=== PATIENT | female | born 1945 | race Asian ===

== ENCOUNTER 2017-05-24 08:19 | Observation (INO) | payer OTHER ==
[~2017-05-24] VITALS: Ht 157.5 cm; Wt 66.0 kg
[2017-05-24] VITALS (30 sets, daily range): BP systolic 122–176; BP diastolic 57–84; PULSE 64–88; RESP 11–20; Ht 157.5 cm; Wt 66.0 kg
[~2017-05-24 08:19] MED LIST: LIDOCAINE 2% (SDV) 5 ML INJ ONE; ONDANSETRON 4 MG INJ ONE
[2017-05-24] MEDS ORDERED: SOD CHLORIDE 0.9% 1,000 ML IV ONE (08:30)
[2017-05-24] MEDS ORDERED: CEFAZOLIN 2 GM/50 ML (PMX) 50 ML IVPB ONE (08:30)
[2017-05-24] MEDS ORDERED: OMEG1CAP2 PO (08:57)
[2017-05-24] MEDS ORDERED: LISI20TA11 PO (08:57)
[2017-05-24] MEDS ORDERED: IBUP-1542 PO (08:58)
[2017-05-24] MEDS ORDERED: AMLO2.5T78 PO (08:58)
[2017-05-24] MEDS ORDERED: ASPI-664 PO (08:59)
[2017-05-24] MEDS ORDERED: MIDAZOLAM 1 MG/ML 2 ML INJ ONE (10:40)
[2017-05-24] MEDS ORDERED: FENTAnyl 50 MCG/ML VIAL ONE ×2 (10:47→11:33)
[2017-05-24] MEDS ORDERED: PROPOFOL 100 ML ONE (10:57)
[2017-05-24] MEDS ORDERED: CEFAZOLIN 1 GM INJ ONE (10:57)
[2017-05-24] MEDS ORDERED: DEXAMETHASONE 4 MG/ML 1 ML INJ ONE (11:06)
[2017-05-24] MEDS ORDERED: ONDANSETRON 4 MG INJ IV PRN ×2 (12:00)
[2017-05-24] MEDS ORDERED: hydrALAzine 20 MG INJ IV PRN ×2 (12:00→13:00)
[2017-05-24] MEDS ORDERED: MEPERIDINE 25 MG INJ IV PRN (12:00)
[2017-05-24] MEDS ORDERED: ACETAMINOPHEN 1000MG/100ML IV 100 ML IVPB PRN (12:00)
[2017-05-24] MEDS ORDERED: KETOROLAC 30 MG INJ IV PRN (12:00)
[2017-05-24] MEDS ORDERED: FENTAnyl 50 MCG/ML VIAL IV PRN ×3 (12:00)
[2017-05-24] MEDS ORDERED: EPHEDrine SULFATE 50 MG/5 ML SYG IV PRN (12:00)
[2017-05-24] MEDS ORDERED: DIPHENHYDRAMINE 50 MG INJ IV PRN (12:00)
[2017-05-24] MEDS ORDERED: OXYCODONE/ACETAMINOPHEN (5/325) TAB PO PRN ×2 (12:00)
[2017-05-24] MEDS ORDERED: LABETALOL HCL 20MG INJ IV PRN (12:00)
[2017-05-24] MEDS ORDERED: morphine (1 MG/ML) 10ML SYRINGE IV PRN ×3 (12:00)
[2017-05-24] MEDS: D5W-0.45 NACL + KCL 20 MEQ 1,000 ML IV SCH ×3 (13:59→22:24)
--- NOTE | 2017-05-24 14:24 | HP ---
DATE OF ADMISSION: 05/24/2017 HISTORY OF PRESENT ILLNESS: The patient is a 71-year-old female with history of hypertension and right breast cancer. The patient is status post-right partial mastectomy. The patient was evaluated by Dr. Hernandez in surgical consultation. Patient was brought to the hospital and underwent right modified radical mastectomy. Postoperatively, the patient experienced moderate pain and patient will be admitted for further evaluation and management. The patient is evaluated in the Recovery room. Patient is lethargic but arousable, she cannot provide any detailed medical history. Most of the history was obtained from medical records and talking to patient's daughter, Bindu. PAST MEDICAL HISTORY: Positive for hypertension, right breast cancer. PAST SURGICAL HISTORY: Status post-right partial mastectomy. FAMILY HISTORY: Positive for history of breast cancer in patient's sister. SOCIAL HISTORY: Patient lives at home with her family. Patient denies any tobacco use. Denies any alcohol use. Denies any illicit drug use. ALLERGIES: NO KNOWN ALLERGIES. MEDICATIONS: Include amlodipine, aspirin, ibuprofen, and lisinopril. REVIEW OF SYSTEMS: A 12 point review of system is negative unless mentioned in HPI. PHYSICAL EXAMINATION: GENERAL: Well-developed, well-nourished female, currently lethargic but easily arousable. Alert to name and situation. VITAL SIGNS: Temperature is 97.9, pulse is 64, blood pressure 146/72, respiratory rate 18. Oxygen saturation 97 percent on room air. HEENT: Head is atraumatic, normocephalic. Pupils equal, round, reactive to light and accommodation. Oral mucosa is pink and moist. NECK: Supple. No cervical lymphadenopathy. No thyromegaly. CHEST: Status post-right mastectomy with dry, clean, intact dressing and axillary JARVIS drain. LUNGS: Clear bilaterally. There is no rhonchi, wheezes, rales noted. CARDIAC: Normal S1, S2. No murmurs, gallops, clicks, or rubs noted. ABDOMEN: Round, soft, nondistended, nontender. Bowel sounds present. There is no guarding or rebound tenderness. EXTREMITIES: No edema, clubbing, cyanosis. Pulses equal bilaterally 2+. SKIN: No apparent rash noted . NEUROLOGIC: The patient lethargic but easily arousable, and moves all extremities. ASSESSMENT AND PLAN: 1. Right breast cancer, status post-right modified radical mastectomy. Will continue Tylenol and morphine as needed for pain. Zofran as needed for nausea. Continue IV fluids and postoperative antibiotics. 2. Hypertension. We will administer hydralazine as needed for systolic blood pressure above 170. Resume patient's home oral antihypertensives. The patient was able to take oral medications. 3. Continue sequential compression device for deep venous thrombosis prophylaxis. 4. Follow up surgical recommendation. 5. Further recommendations based on clinical course. 6. Plan of care discussed with Dr. Urena. DICTATED BY: Leslye Mariscal NP. Dictated By: Leslye Mariscal NP /jeff/more /Document#: [id number]
[2017-05-24] MEDS: morphine 2 MG INJ IV PRN (14:30)
--- NOTE | 2017-05-24 17:08 | OPR ---
DATE OF OPERATION: 05/24/2017 PREOPERATIVE DIAGNOSIS: Right breast cancer. POSTOPERATIVE DIAGNOSIS: Right breast cancer. OPERATION PERFORMED: Right modified radical mastectomy. ANESTHESIA: General. ANESTHESIOLOGIST: Juan Prince MD SURGEON: Kranthi Hernandez MD DECORATING MACHINE OPERATOR: Blas Kumar MD INDICATIONS FOR PROCEDURE: Patient is a 71-year-old female, who had a previous invasive cancer of the right breast treated in 2006 at another institution. At that time, she had a partial mastectomy, followed by radiation. She recently underwent surveillance mammography and was found to have suspicious microcalcifications in the right breast, a rather large span, and biopsy confirmed ductal carcinoma in situ. The patient was counseled as to risks versus benefits of the options, including modified radical mastectomy. She consented for a modified radical mastectomy and was scheduled for surgery. OPERATIVE PROCEDURE: Patient was brought to the operating theater, placed under general endotracheal tube anesthesia. The right breast and axillary region was prepped and draped in the usual sterile fashion. A planned elliptical incision around the nipple-areolar complex was demarcated with marking pen and carried out with a 15 blade scalpel. Subcutaneous tissue was dissected with cautery. The skin edges were then elevated with skin hooks, and skin flaps were created using cautery, first superiorly to the clavicle, then medially to the sternal border, inferiorly to the inframammary fold, and laterally until the latissimus dorsi muscle was dissected throughout its course. Mastectomy then took place from medial to lateral, using cautery at the border of the pectoralis major muscle. The pectoralis minor muscle was identified. Clavipectoral fascia was incised. There was significant scar tissue from previous axillary dissection. With blunt dissection along the chest wall, the long thoracic nerve was identified and kept out of harm's way. Axillary tissue was then resected, using a combination of cautery and the LigaSure device. Specimen was then elevated, transected, oriented and sent for permanent pathologic analysis. The wound was irrigated. Minimal bleeding was controlled with cautery. Two number 10 flat Angel-Valle drains were then brought through the right mid axillary line. One was cut to size and laid within the axilla. The other was cut to size and laid over the pectoralis major muscle. Both drains were secured in place with 2-0 nylon suture in standard fashion. The skin was then reapproximated with skin dinesh. Patient tolerated procedure well. The estimated blood loss was approximately 30 mL. There were no complications. Patient was transferred transported in stable condition to the recovery room, where a circumferential compression dressing was applied. Dictated By: Kranthi Hernandez MD /jeff/ish /Document#: [id number]
[2017-05-25] MEDS: morphine 2 MG INJ IV PRN (00:08)
[2017-05-25 02:00] VITALS: BP 113/55; RESP 20
[2017-05-25] MEDS: D5W-0.45 NACL + KCL 20 MEQ 1,000 ML IV SCH ×3 (03:47→11:47)
[2017-05-25 05:30] VITALS: BP 126/58; RESP 20
[2017-05-25 06:13] LABS: BASOPHILS % 0.1 % (0.0-2.0); HEMATOCRIT 33.3 % (37.0-47.0); HEMOGLOBIN 10.2 g/dl (12.0-16.0); LYMPHOCYTES # 1.7 10^3/ul (0.8-2.9); LYMPHOCYTES % 16.3 % (15.0-51.0); MEAN CORPUSCULAR HEMOGLOBIN 22.5 pg (29.0-33.0); MEAN CORPUSCULAR HGB CONC 30.6 g/dl (32.0-37.0); MEAN CORPUSCULAR VOLUME 73.3 fl (82.0-101.0); MEAN PLATELET VOLUME 9.1 fl (7.4-10.4); MONOCYTE # 0.5 10^3/ul (0.3-0.9); MONOCYTES % 5.1 % (0.0-11.0); NEUTROPHIL # 8.2 10^3/ul (1.6-7.5); NEUTROPHILS % 77.8 % (39.0-77.0); PLATELET COUNT 222 10^3/UL (140-415); RED BLOOD COUNT 4.54 10^6/ul (4.20-5.40); RED CELL DISTRIBUTION WIDTH 15.9 % (11.5-14.5); WHITE BLOOD COUNT 10.5 10^3/ul (4.8-10.8)
[2017-05-25 06:43] LABS: CALCIUM 8.6 mg/dl (8.4-10.2); CREATININE 0.74 mg/dl (0.44-1.00); POTASSIUM 4.6 mmol/L (3.5-5.1)
[2017-05-25 07:21] VITALS: BP 119/59; RESP 20
[2017-05-25] MEDS ORDERED: AMLODIPINE 2.5 MG TAB PO SCH (09:00)
[2017-05-25] MEDS ORDERED: LISINOPRIL 20 MG TAB PO SCH (09:00)
[2017-05-25 13:38] VITALS: BP 127/64; RESP 20
[2017-05-25] MEDS ORDERED: HYDR-906 PO (15:16)
--- NOTE | 2017-05-25 17:16 | PN ---
DATE: 05/25/2017 SUBJECTIVE: No complaint, not that much of pain. The patient is status post right modified radical mastectomy, postop day number 1. OBJECTIVE: GENERAL: Awake, alert, and oriented x3. VITAL SIGNS: Temperature 98.7, heart rate 90, blood pressure 122/64, saturation 97 percent room air. Two Angel-[place]le drains in place. Number 1 drained 30 mL. Number 2 drained 15 mL since operation. color is serosanguinous. The breast image is intact. The bandage around the chest wall is not too tight. The patient's daughter, who is a nurse, was at the bedside. She was instructed how to take care of the Angel-Valle drains, how to drain them, how to measure them. PLAN: The patient can be discharged home today to be followed by Dr. Hernandez in the office. The family will call the office and make an appointment. All the questions that was put forward by the patient's daughter were answered, and she does have any more questions. Pain medication prescription will be given. Dictated By: Blas Kumar MD /jeff/anibal /Document#: [id number] LYRIC
--- NOTE | 2017-05-25 18:16 | DS ---
Date/Time of Note Date/Time of Note DATE: 05/25/17 TIME: 18:11 Discharge Summary Admission/Discharge Info Admit Date/Time May 24, 2017 at 11:48 Discharge Date/Time May 25, 2017 at 15:50 Patient Condition: Stable Hx of Present Illness The patient is a 71-year-old female with history of hypertension and right breast cancer. The patient is status post-right partial mastectomy. The patient was evaluated by Dr. Hernandez in surgical consultation. Patient was brought to the hospital and underwent right modified radical mastectomy. Postoperatively, the patient experienced moderate pain and patient will be admitted for further evaluation and management. The patient is evaluated in the Recovery room. Patient is lethargic but arousable, she cannot provide any detailed medical history. Most of the history was obtained from medical records and talking to patient's daughter, Bindu. Hospital Course 1. Right breast cancer, status post-right modified radical mastectomy. Will continue Tylenol and morphine as needed for pain. Zofran as needed for nausea. Continue IV fluids and postoperative antibiotics. 2. Hypertension. We will administer hydralazine as needed for systolic blood pressure above 170. Resume patient's home oral antihypertensives when pt is able to take oral medications. Home Meds Active Scripts Hydrocodone/Acetaminophen ([place] 5-325 Tablet) 1 Each Tablet, 1 EACH PO Q4 for PAIN, #30 TAB Prov:ELDA REINA 05/25/17 Reported Medications Aspirin (Low Dose Aspirin) 81 Mg Tablet., 81 MG PO DAILY, #30 TAB 05/24/17 Amlodipine Besylate* (Amlodipine Besylate*) 2.5 Mg Tablet, 2.5 MG PO DAILY, #30 TAB 05/24/17 Lisinopril* (Lisinopril*) 20 Mg Tablet, 20 MG PO DAILY, #30 TAB 05/24/17 Mackay-3 Acid Ethyl Esters (Lovaza) 1 Gm Capsule, 2 GM PO BID, CAP 05/24/17 Discontinued Reported Medications Ibuprofen* (Motrin*) 600 Mg Tab, 600 MG PO QID Y for PAIN, TAB 05/24/17 Follow-up Plan Follow-up with Dr. Hernandez in 1 week Primary Care Provider Not On Staff Doctor Time spent on discharge: > 30 minutes Pending Labs Laboratory Tests Test 05/25/17 05:55 White Blood Count 10.510^3/ul (4.8-10.8) Red Blood Count 4.5410^6/ul (4.20-5.40) Hemoglobin 10.2g/dl (12.0-16.0) Hematocrit 33.3% (37.0-47.0) Mean Corpuscular Volume 73.3fl (82.0-101.0) Mean Corpuscular Hemoglobin 22.5pg (29.0-33.0) Mean Corpuscular Hemoglobin Concent 30.6g/dl (32.0-37.0) Red Cell Distribution Width 15.9% (11.5-14.5) Platelet Count 19846^3/UL (140-415) Mean Platelet Volume 9.1fl (7.4-10.4) Neutrophils % 77.8% (39.0-77.0) Lymphocytes % 16.3% (15.0-51.0) Monocytes % 5.1% (0.0-11.0) Eosinophils % 0.0% (0.0-7.0) Basophils % 0.1% (0.0-2.0) Nucleated Red Blood Cells % 0.0/100WBC (0.0-0.0) Neutrophils # 8.210^3/ul (1.6-7.5) Lymphocytes # 1.710^3/ul (0.8-2.9) Monocytes # 0.510^3/ul (0.3-0.9) Eosinophils # 0.010^3/ul (0.0-0.5) Basophils # 0.010^3/ul (0.0-0.1) Nucleated Red Blood Cells # 0.010^3/ul (0.0-0.0) Sodium Level 140mmol/L (135-144) Potassium Level 4.6mmol/L (3.5-5.1) Chloride Level 110mmol/L (97-110) Carbon Dioxide Level 24mmol/L (21-31) Anion Gap 11 (8-16) Blood Urea Nitrogen 13mg/dl (7-20) Creatinine 0.74mg/dl (0.44-1.00) Glucose Level 153mg/dl (70-220) Calcium Level 8.6mg/dl (8.4-10.2) ELDA REINA May 25, 2017 18:16
== END 2017-05-25 15:50 | disposition home or self-care (01) ==
LOC: SDS 08:19 → MS2 11:48 → SDS 11:48 → UNDOFXSDCSVC 13:45 → SDS 13:45 → UNDOFXSDCACCOM 13:45 → MS2 13:45
PROVIDERS: ADMIT Surgery Surgical Oncology; ATTEND Surgery Surgical Oncology
DX: C50.911 Malignant neoplasm of unspecified site of right female breast (principal); I10 Essential (primary) hypertension; Z90.11 Acquired absence of right breast and nipple; G89.18 Other acute postprocedural pain
CPT/HCPCS: 19307; 80048; 85025; 88307; 88341; 88342; J0360; J0690; J1100; J2250; J2270; J2405; J3010; J3480; Z7500; Z7512; Z7610; G0378